=== PATIENT | female | born 1985 | race Hispanic/Latino ===

== ENCOUNTER 2024-06-17 14:49 | Emergency (ER) | payer BC, SELFPAY ==
[2024-06-17] VITALS (9 sets, daily range): BP systolic 138–173; BP diastolic 66–93; PULSE 81–92; RESP 18–20; TEMP 36.8; O2SAT 96–100; BMI 31.8
--- NOTE | 2024-06-17 15:18 | DI.CT.S_ITS ---
PROCEDURE: CT ANGIO HEAD AND NECK INDICATIONS: stroke TECHNIQUE: After the administration of intravenous contrast, 1 mm thick sections acquired from the aortic arch through the [place]. 3-dimensional jwdqrzp-vlozgxgic-jykimgftnf (MIP) and/or volume rendering reformats were acquired of the central intracranial vasculature and neck separately. For radiation dose reduction, the following was used: automated exposure control, adjustment of mA and/or kV according to patient size. COMPARISON: [facility], CT, CT HEAD/BRAIN WO CON, 06/17/2024, 15:37. FINDINGS: Image quality: There is streak artifact seen through the level of the shoulders. This examination is limited by involuntary motion artifact. Limited by bolus timing, with venous contamination. BRAIN: CSF spaces: Ventricles are normal in size and shape. Basal cisterns are patent. No extra-axial fluid collections. Brain: No significant abnormality of the brain can be seen. Skull and face: Scrutiny is given to the course of the left facial nerve, including within the parotid gland. To the limits of CT, no masses or abnormal enhancement can be seen. Calvarium and facial bones appear intact, without suspicious lesions. Orbits appear normal. Sinuses: Sinuses and mastoids are clear. HEAD CT ANGIOGRAPHY: Anterior circulation: Intracranial internal carotid arteries are normal in size and flow. The flow within the paired anterior cerebral arteries is normal and symmetric. The flow within the middle cerebral arteries is normal and symmetric. The anterior communicating artery is seen. No aneurysms are seen. Posterior circulation: Visualized portions of the vertebral arteries demonstrate normal caliber, and join to form a normal appearing basilar artery. Flow within the posterior cerebral arteries is normal and symmetric. No aneurysms are seen. NECK CT ANGIOGRAPHY: Carotid system: The great vessels demonstrate a conventional anatomy as they arise from the aortic arch. The origins of the common carotid arteries appear patent. The common carotid arteries demonstrate normal caliber and courses. The bifurcation regions are both widely patent. The internal carotid arteries demonstrate normal calibers and courses. Posterior circulation: The origins of the vertebral arteries both appear widely patent. The more superior extracranial portions of both vertebral arteries also demonstrate normal courses and calibers. They join to form a normal appearing basilar artery. Soft tissues: Visualized neck soft tissues demonstrate no suspicious abnormalities. Bones: No suspicious bony lesions. Visualized cervical spine appears normally aligned. IMPRESSION: No significant intracranial arterial abnormality is seen. No significant abnormality is seen within the arteries of the neck. If there is strong clinical suspicion for an acute stroke, please consider a brain MRI for further evaluation, as it is more sensitive (assuming that there is no contraindication to MRI). Any quantitative measurements of stenosis were performed using NASCET criteria. Dictated by: Ayo Fish M.D. on 06/17/2024 at 14:52 Approved by: Ayo Fish M.D. on 06/17/2024 at 14:54
--- NOTE | 2024-06-17 15:21 | ED.NEUROSD ---
HPI - Neuro Symptoms/Deficit <Bridget Castaneda MD - Last Filed: 06/18/24 08:27> General Chief Complaint: Neuro Symptoms/Deficit Stated Complaint: bells palsy sent by [facility] Time Seen by Provider: 06/17/24 15:07 Source: patient and family Mode of arrival: Ambulatory History of Present Illness HPI Narrative: 38-year-old woman presents with left-sided acute neurologic symptoms. Symptoms started on June 14 initially with facial weakness on the left side. 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 Seen in clinic today with complaints of decreased sensation along the entire left side, numbness of her tongue, weakness in the left arm and left leg and overall feeling globally weak. No recent viral syndromes, no current fever, cough, chills, chest pain, abdominal pain, palpitations On Anticoagulants: No Related Data Previous Rx's Medication Instructions Recorded albuterol sulfate 90 mcg/actuation 1 puff INH Q4-6 #1 inh 05/23/16 aerosol inhaler (Proventil HFA) prednisone 20 mg tablet 20 mg PO BID #15 tabs 05/23/16 Review of Systems <Bridget Castaneda MD - Last Filed: 06/18/24 08:27> Review of Systems Narrative: Pertinent positive and negative findings as per HPI Hematologic/Lymphatic On Anticoagulants: No Patient History <Bridget Castaneda MD - Last Filed: 06/18/24 08:27> Surgical History (Updated 11/25/17 @ 06:05 by Conversion Provider) Status post tubal ligation (04/12/16) Status post dilation and curettage (03/15/16) Family History (Updated 10/24/16 @ 00:00 by Conversion Provider) Father Hypertension Mother Diabetes mellitus Sister Diabetes mellitus Social History Smoking Status: Never smoker Smoking Status: Never smoker alcohol intake frequency: 0-2 drinks per day Substance Use Type: does not use Exam <Bridget Castaneda MD - Last Filed: 06/18/24 08:27> Initial Vital Signs Initial Vital Signs: Vital Signs Temperature 98.3 F 06/17/24 14:49 Pulse Rate 90 06/17/24 14:49 Respiratory Rate 20 06/17/24 14:49 Blood Pressure 173/93 H 06/17/24 14:49 Pulse Oximetry 98 06/17/24 14:49 Oxygen Delivery Method Room Air 06/17/24 14:49 General: Healthy appearing, in no acute distress. Able to give a complete and coherent history. HEENT: Moist mucous membranes, normal sclera with reactive pupils, Left side facial paralysis upper and lower face, Neck: No JVD, supple Respiratory: Lungs are clear to auscultation, no wheezing no rales no rhonchi. Full and symmetrical air movement Cardiac: Regular rate and rhythm no murmurs no bruits Abdomen: Soft, nontender, good bowel tones, no flank pain Skin: Warm and dry, no rashes Neurologic: weakness left face arm and leg see NIH score below Extremities: No trauma, well perfused Psych: Cooperative, appropriate insight and affect NIH Stroke Scale/Score (NIHSS) on 06/17/2024 RESULT SUMMARY: 8 points NIH Stroke Scale INPUTS: 1A: Level of consciousness ?> 0 = Alert; keenly responsive 1B: Ask month and age ?> 0 = Both questions right 1C: 'Blink eyes' & 'squeeze hands' ?> 0 = Performs both tasks 2: Horizontal extraocular movements ?> 0 = Normal 3: Visual serrato ?> 0 = No visual loss 4: Facial palsy ?> 3 = Unilateral complete paralysis (upper/lower face) 5A: Left arm motor drift ?> 1 = Drift, but doesn't hit bed 5B: Right arm motor drift ?> 0 = No drift for 10 seconds 6A: Left leg motor drift ?> 1 = Drift, but doesn't hit bed 6B: Right leg motor drift ?> 0 = No drift for 5 seconds 7: Limb Ataxia ?> 1 = Ataxia in 1 Limb 8: Sensation ?> 1 = Mild-moderate loss: can sense being touched 9: Language/aphasia ?> 0 = Normal; no aphasia 10: Dysarthria ?> 1 = Mild-moderate dysarthria: slurring but can be understood 11: Extinction/inattention ?> 0 = No abnormality <Dorita Camilo MD - Last Filed: 06/18/24 02:50> Initial Vital Signs Initial Vital Signs: Vital Signs Temperature 98.3 F 06/17/24 14:49 Pulse Rate 90 06/17/24 14:49 Respiratory Rate 20 06/17/24 14:49 Blood Pressure 173/93 H 06/17/24 14:49 Pulse Oximetry 98 06/17/24 14:49 Oxygen Delivery Method Room Air 06/17/24 14:49 Course <Bridget Castaneda MD - Last Filed: 06/18/24 08:27> Orders Ordered: ED Orders 06/17/24 15:18 CT angio head and neck Stat 06/17/24 15:19 Complete Blood Count AUTO DIFF Stat Comprehensive Metabolic Panel Stat PTT Partial Thromboplastin Rolando Stat Prothrombin Time INR Stat 06/17/24 15:21 CT head/brain wo con Stat 06/17/24 15:29 Troponin I Stat 06/17/24 17:44 MR head/brain wo con Stat Vital Signs Vital signs: Vital Signs - 8 hr 06/17/24 19:52 Pulse Rate 87 Respiratory Rate 18 Blood Pressure 144/81 H Pulse Oximetry 96 Oxygen Delivery Method Room Air <Dorita Camilo MD - Last Filed: 06/18/24 02:50> Orders Ordered: ED Orders 06/17/24 15:18 CT angio head and neck Stat 06/17/24 15:19 Complete Blood Count AUTO DIFF Stat Comprehensive Metabolic Panel Stat PTT Partial Thromboplastin Rolando Stat Prothrombin Time INR Stat 06/17/24 15:21 CT head/brain wo con Stat 06/17/24 15:29 Troponin I Stat 06/17/24 17:44 MR head/brain wo con Stat Vital Signs Vital signs: Vital Signs - 8 hr 06/17/24 19:52 Pulse Rate 87 Respiratory Rate 18 Blood Pressure 144/81 H Pulse Oximetry 96 Oxygen Delivery Method Room Air MDM - Neuro Symptoms/Deficit <Bridget Castaneda MD - Last Filed: 06/18/24 08:27> Lab Data 06/17/24 15:19 06/17/24 15:19 Labs: Lab Results 06/17/24 06/17/24 Range/Units 15:19 15:29 WBC 10.9 (4.5-11.0) X10^3/uL RBC 4.41 (4.0-5.2) X10^6/uL Hgb 13.9 (12.0-16.0) g/dL Hct 41.4 (36-46) % MCV 93.7 (80-100) fL MCH 31.5 (26-34) PG MCHC 33.6 (30-36) % RDW 13.1 (11.6-14.8) % Plt Count 317 (150-400) X10^3/uL Neut % (Auto) 86.3 H (50-75) % Lymph % (Auto) 12.0 L (25-40) % [place] % (Auto) 1.4 L (3-14) % Eos % (Auto) 0.0 L (2-4) % Baso % (Auto) 0.3 (0-2) % Neut # (Auto) 9400 H (8362-9246) /uL Lymph # (Auto) 1300 (6062-1727) /uL [place] # (Auto) 200 (0-900) /uL Eos # (Auto) 0 (0-450) /uL Baso # (Auto) 0 (0-100) /uL PT 11.1 (9.4-12.5) SECONDS INR 1.0 (0.9-1.3) APTT 30 (25.1-36.5) SECONDS Sodium 138 (137-145) mmol/L Potassium 3.8 (3.4-5.1) mmol/L Chloride 107 (98-107) mmol/L Carbon Dioxide 21 L (22-32) mmol/L BUN 15 (7-17) mg/dL Creatinine 0.68 (0.52-1.04) mg/dL Estimated GFR > 60 (>60) mL/min BUN/Creatinine Ratio 22.1 H (6-22) Glucose 145 H (70-100) mg/dL Calcium 9.6 (8.4-10.2) mg/dL Total Bilirubin 0.3 (0.2-1.3) mg/dL AST 32 (14-36) IU/L ALT 29 (<35) IU/L Alkaline Phosphatase 80 (38-126) U/L Troponin I < 0.012 (0.01-0.034) ng/mL Total Protein 8.8 H (6.3-8.2) g/dL Albumin 4.9 (3.5-5.0) g/dL Globulin 3.9 (1.7-4.1) g/dL Albumin/Globulin Ratio 1.3 (1.0-2.8) Imaging Data CT scan - head: Radiologist's Impression: PROCEDURE: CT HEAD/BRAIN WO CON INDICATIONS: stroke, onset 06/14 TECHNIQUE: Noncontrast 4.5 mm thick angled axial sections acquired from the foramen magnum to the vertex, with coronal and sagittal reformats. For radiation dose reduction, the following was used: automated exposure control, adjustment of mA and/or kV according to patient size. COMPARISON: [facility], CT, CT ANGIO HEAD AND NECK, 06/17/2024, 15:37. FINDINGS: Image quality: Diagnostic. CSF spaces: Basal cisterns are patent. No extra-axial fluid collections. Ventricles are normal in size and shape. Brain: No midline shift. No intracranial masses or hemorrhage. Cedneo-white matter interface is normal. Skull and face: Calvarium and visualized facial bones are intact, without suspicious lesions. Sinuses: Visualized sinuses and mastoids are clear. IMPRESSION: No acute intracranial hemorrhage is seen. No acute intracranial pathology. Dictated by: Ayo Fish M.D. on 06/17/2024 at 14:54 CT angio of the Head and neck: Radiologist's Impression: PROCEDURE: CT ANGIO HEAD AND NECK INDICATIONS: stroke TECHNIQUE: After the administration of intravenous contrast, 1 mm thick sections acquired from the aortic arch through the [place]. 3-dimensional ztoaqpr-rtohwrrfd-kmqmshlsmp (MIP) and/or volume rendering reformats were acquired of the central intracranial vasculature and neck separately. For radiation dose reduction, the following was used: automated exposure control, adjustment of mA and/or kV according to patient size. COMPARISON: [facility], CT, CT HEAD/BRAIN WO CON, 06/17/2024, 15:37. FINDINGS: Image quality: There is streak artifact seen through the level of the shoulders. This examination is limited by involuntary motion artifact. Limited by bolus timing, with venous contamination. BRAIN: CSF spaces: Ventricles are normal in size and shape. Basal cisterns are patent. No extra-axial fluid collections. Brain: No significant abnormality of the brain can be seen. Skull and face: Scrutiny is given to the course of the left facial nerve, including within the parotid gland. To the limits of CT, no masses or abnormal enhancement can be seen. Calvarium and facial bones appear intact, without suspicious lesions. Orbits appear normal. Sinuses: Sinuses and mastoids are clear. HEAD CT ANGIOGRAPHY: Anterior circulation: Intracranial internal carotid arteries are normal in size and flow. The flow within the paired anterior cerebral arteries is normal and symmetric. The flow within the middle cerebral arteries is normal and symmetric. The anterior communicating artery is seen. No aneurysms are seen. Posterior circulation: Visualized portions of the vertebral arteries demonstrate normal caliber, and join to form a normal appearing basilar artery. Flow within the posterior cerebral arteries is normal and symmetric. No aneurysms are seen. NECK CT ANGIOGRAPHY: Carotid system: The great vessels demonstrate a conventional anatomy as they arise from the aortic arch. The origins of the common carotid arteries appear patent. The common carotid arteries demonstrate normal caliber and courses. The bifurcation regions are both widely patent. The internal carotid arteries demonstrate normal calibers and courses. Posterior circulation: The origins of the vertebral arteries both appear widely patent. The more superior extracranial portions of both vertebral arteries also demonstrate normal courses and calibers. They join to form a normal appearing basilar artery. Soft tissues: Visualized neck soft tissues demonstrate no suspicious abnormalities. Bones: No suspicious bony lesions. Visualized cervical spine appears normally aligned. IMPRESSION: No significant intracranial arterial abnormality is seen. No significant abnormality is seen within the arteries of the neck. If there is strong clinical suspicion for an acute stroke, please consider a brain MRI for further evaluation, as it is more sensitive (assuming that there is no contraindication to MRI). Any quantitative measurements of stenosis were performed using NASCET criteria. Dictated by: Ayo Fish M.D. on 06/17/2024 at 14:52 MDM Narrative Medical decision making narrative: CC: Left side stroke symptoms starting on June 14 Complicating co-morbidities: initially felt to be Hooker's palsy, she is completed a couple of days of prednisone was not given acyclovir Data collected from: patient Differential considered: stroke, intracranial hemorrhage, intracranial mass, MS, Exam documented above, pertinent findings include: Left facial paralysis, numbness, 4-5 strength with mild paresthesia to upper and lower extremities. NIH score is 8 Lab Test results independently reviewed as above. Pertinent findings: CBC is unremarkable coagulation studies are appropriate chemistries are unremarkable Imaging studies independently reviewed: CT of the head does not show any acute findings CT angiogram of the head and neck does not show acute findings or bleeding Consultations: Treatments: Re-evaluations: Discussion: patient definitely has left-sided facial paralysis that does look like Hooker's palsy however there was also associated numbness, tongue involvement left-sided upper extremity and lower extremity weakness with upper and lower extremity paresthesias. The upper and lower extremity abnormalities did not show up until 24 hours after the initial facial /Hooker's palsy presentation on June 14. She is well out of any time window for tPA or other intervention. Initial CT and CT angiogram of the head and neck did not show acute findings. Patient is updated. She is going to . [facility]. <Dorita Camilo MD - Last Filed: 06/18/24 02:50> Lab Data Labs: Lab Results 06/17/24 06/17/24 Range/Units 15:19 15:29 WBC 10.9 (4.5-11.0) X10^3/uL RBC 4.41 (4.0-5.2) X10^6/uL Hgb 13.9 (12.0-16.0) g/dL Hct 41.4 (36-46) % MCV 93.7 (80-100) fL MCH 31.5 (26-34) PG MCHC 33.6 (30-36) % RDW 13.1 (11.6-14.8) % Plt Count 317 (150-400) X10^3/uL Neut % (Auto) 86.3 H (50-75) % Lymph % (Auto) 12.0 L (25-40) % [place] % (Auto) 1.4 L (3-14) % Eos % (Auto) 0.0 L (2-4) % Baso % (Auto) 0.3 (0-2) % Neut # (Auto) 9400 H (6502-8361) /uL Lymph # (Auto) 1300 (8843-1237) /uL [place] # (Auto) 200 (0-900) /uL Eos # (Auto) 0 (0-450) /uL Baso # (Auto) 0 (0-100) /uL PT 11.1 (9.4-12.5) SECONDS INR 1.0 (0.9-1.3) APTT 30 (25.1-36.5) SECONDS Sodium 138 (137-145) mmol/L Potassium 3.8 (3.4-5.1) mmol/L Chloride 107 (98-107) mmol/L Carbon Dioxide 21 L (22-32) mmol/L BUN 15 (7-17) mg/dL Creatinine 0.68 (0.52-1.04) mg/dL Estimated GFR > 60 (>60) mL/min BUN/Creatinine Ratio 22.1 H (6-22) Glucose 145 H (70-100) mg/dL Calcium 9.6 (8.4-10.2) mg/dL Total Bilirubin 0.3 (0.2-1.3) mg/dL AST 32 (14-36) IU/L ALT 29 (<35) IU/L Alkaline Phosphatase 80 (38-126) U/L Troponin I < 0.012 (0.01-0.034) ng/mL Total Protein 8.8 H (6.3-8.2) g/dL Albumin 4.9 (3.5-5.0) g/dL Globulin 3.9 (1.7-4.1) g/dL Albumin/Globulin Ratio 1.3 (1.0-2.8) Imaging Data CT angio of the Head and neck: Radiologist's Impression: PROCEDURE: CT ANGIO HEAD AND NECK INDICATIONS: stroke TECHNIQUE: After the administration of intravenous contrast, 1 mm thick sections acquired from the aortic arch through the [place]. 3-dimensional weivhyl-sqmjaenie-vmxhgithcg (MIP) and/or volume rendering reformats were acquired of the central intracranial vasculature and neck separately. For radiation dose reduction, the following was used: automated exposure control, adjustment of mA and/or kV according to patient size. COMPARISON: [facility], CT, CT HEAD/BRAIN WO CON, 06/17/2024, 15:37. FINDINGS: Image quality: There is streak artifact seen through the level of the shoulders. This examination is limited by involuntary motion artifact. Limited by bolus timing, with venous contamination. BRAIN: CSF spaces: Ventricles are normal in size and shape. Basal cisterns are patent. No extra-axial fluid collections. Brain: No significant abnormality of the brain can be seen. Skull and face: Scrutiny is given to the course of the left facial nerve, including within the parotid gland. To the limits of CT, no masses or abnormal enhancement can be seen. Calvarium and facial bones appear intact, without suspicious lesions. Orbits appear normal. Sinuses: Sinuses and mastoids are clear. HEAD CT ANGIOGRAPHY: Anterior circulation: Intracranial internal carotid arteries are normal in size and flow. The flow within the paired anterior cerebral arteries is normal and symmetric. The flow within the middle cerebral arteries is normal and symmetric. The anterior communicating artery is seen. No aneurysms are seen. Posterior circulation: Visualized portions of the vertebral arteries demonstrate normal caliber, and join to form a normal appearing basilar artery. Flow within the posterior cerebral arteries is normal and symmetric. No aneurysms are seen. NECK CT ANGIOGRAPHY: Carotid system: The great vessels demonstrate a conventional anatomy as they arise from the aortic arch. The origins of the common carotid arteries appear patent. The common carotid arteries demonstrate normal caliber and courses. The bifurcation regions are both widely patent. The internal carotid arteries demonstrate normal calibers and courses. Posterior circulation: The origins of the vertebral arteries both appear widely patent. The more superior extracranial portions of both vertebral arteries also demonstrate normal courses and calibers. They join to form a normal appearing basilar artery. Soft tissues: Visualized neck soft tissues demonstrate no suspicious abnormalities. Bones: No suspicious bony lesions. Visualized cervical spine appears normally aligned. IMPRESSION: No significant intracranial arterial abnormality is seen. No significant abnormality is seen within the arteries of the neck. If there is strong clinical suspicion for an acute stroke, please consider a brain MRI for further evaluation, as it is more sensitive (assuming that there is no contraindication to MRI). Any quantitative measurements of stenosis were performed using NASCET criteria. Dictated by: Ayo Fish M.D. on 06/17/2024 at 14:52 PROCEDURE: MR HEAD/BRAIN WO CON INDICATIONS: stroke TECHNIQUE: Noncontrast axial T1 spin echo, axial T2 fast spin echo, sagittal and axial FLAIR, coronal T2 fast spin echo, axial gradient echo, axial diffusion and ADC through the brain. COMPARISON: [facility], CT, CT HEAD/BRAIN WO CON, 06/17/2024, 15:37. [facility], CT, CT ANGIO HEAD AND NECK, 06/17/2024, 15:37. FINDINGS: Image quality: Excellent. CSF Spaces: Basal cisterns are patent. No extra-axial fluid collections. Ventricles are normal in size and shape. Brain: No intracranial masses or hemorrhage. [place]/white matter interface is normal. Brainstem appears normal. Diffusion-weighted images demonstrate no acute infarct. No chronic ischemic insults. Normal intravascular flow voids are present. Skull and face: Calvarium has normal marrow signal. Orbits appear normal. Sinuses: Sinuses and mastoids are clear. IMPRESSION: No acute infarct. Dictated by: Carlos Elaine M.D. on 06/17/2024 at 19:10 Approved by: Carlos Elaine M.D. on 06/17/2024 at 19:15 [facility] Narrative Medical decision making narrative: CC: Left side stroke symptoms starting on June 14 Complicating co-morbidities: initially felt to be Hooker's palsy, she is completed a couple of days of prednisone was not given acyclovir Data collected from: patient Differential considered: stroke, intracranial hemorrhage, intracranial mass, MS, Exam documented above, pertinent findings include: Left facial paralysis, numbness, 4-5 strength with mild paresthesia to upper and lower extremities. NIH score is 8 Lab Test results independently reviewed as above. Pertinent findings: CBC is unremarkable coagulation studies are appropriate chemistries are unremarkable Imaging studies independently reviewed: CT of the head does not show any acute findings CT angiogram of the head and neck does not show acute findings or bleeding Consultations: Treatments: Re-evaluations: Discussion: patient definitely has left-sided facial paralysis that does look like Hooker's palsy however there was also associated numbness, tongue involvement left-sided upper extremity and lower extremity weakness with upper and lower extremity paresthesias. The upper and lower extremity abnormalities did not show up until 24 hours after the initial facial /Hooker's palsy presentation on June 14. She is well out of any time window for tPA or other intervention. Initial CT and CT angiogram of the head and neck did not show acute findings. Patient is updated. She is going to . Will transfer care to oncoming evening physician. Dr. Camilo - care of patient is signed out to me by daytime physician. Independent review of patient and chart performed by myself. MRI brain shows no acute abnormalities. No signs of infarct, abnormal signal uptake, other concerns. CT brain and CT angio head and neck show no acute findings either. Patient reassessed, she still has sequela of Hooker's palsy. Patient informed of all lab and imaging findings as well as MRI results. She was counseled to continue to take the prednisone as previously prescribed. Hooker's palsy it was generally a self-limiting condition and should resolve in the next several weeks. ED return precautions discussed at bedside. Patient expressed understanding of the plan and is in agreement at this time. All questions answered at the time of discharge. Discharge Plan Departure Patient Disposition: Home Clinical Impression: Hooker's palsy Instructions: DI for [place] Palsy Activity Restrictions/Additional Instructions: your laboratory work and CT imaging as well as brain MRI did not show any strokes, tumors, bleeds, or any other abnormalities. Your blood work looks good and I did not see any sign of infection. Continue to take the prednisone given to you. You may take Tylenol and ibuprofen as needed for headache. Hooker's palsy in the majority of cases goes back to normal after several weeks. Follow up with your primary care doctor. Prescriptions: No Action albuterol sulfate [Proventil HFA] 90 MCG/PUFF HFA aerosol inhaler 1 puff INH Q4-6 Qty: 1 1RF prednisone 20 MG tablet 20 mg PO BID Qty: 15 0RF Referrals: Franko Spencer MD [Primary Care Provider] - Stand Alone Forms: Patient Portal/API/Survey
[2024-06-17 15:32] LABS: Add Manual Diff / Slide Review NO; Basophils Absolute Auto 0 /uL (0-100); Basophils Percent Auto 0.3 % (0-2); Eosinophils Absolute Auto 0 /uL (0-450); Hematocrit 41.4 % (36-46); Hemoglobin 13.9 g/dL (12.0-16.0); Lymphocytes Absolute Auto 1300 /uL (1100-4500); Mean Corpuscular HGB Conc 33.6 % (30-36); Mean Corpuscular Hemoglobin 31.5 PG (26-34); Mean Corpuscular Volume 93.7 fL (80-100); Monocytes Absolute Auto 200 /uL (0-900); Monocytes Percent Auto 1.4 % (3-14); Neutrophils Absolute Auto 9400 /uL (1500-7000); Neutrophils Percent Auto 86.3 % (50-75); Platelet Count 317 X10^3/uL (150-400); Red Blood Cell Count 4.41 X10^6/uL (4.0-5.2); Red Cell Distribution Width 13.1 % (11.6-14.8); White Blood Cell Count 10.9 X10^3/uL (4.5-11.0)
[2024-06-17 15:38] LABS: Prothrombin Time 11.1 SECONDS (9.4-12.5)
[2024-06-17 15:45] LABS: Alanine Aminotransferase 29 IU/L (<35); Albumin 4.9 g/dL (3.5-5.0); Albumin Globulin Ratio 1.3 (1.0-2.8); Alkaline Phosphatase 80 U/L (38-126); Aspartate Aminotransferase 32 IU/L (14-36); BUN Creatinine Ratio 22.1 (6-22); Bilirubin Total 0.3 mg/dL (0.2-1.3); Blood Urea Nitrogen 15 mg/dL (7-17); Calcium 9.6 mg/dL (8.4-10.2); Carbon Dioxide 21 mmol/L (22-32); Chloride 107 mmol/L (98-107); Estimated Glomerular Filt Rate > 60 mL/min (>60); Globulin 3.9 g/dL (1.7-4.1); Glucose 145 mg/dL (70-100); HEMOLYSIS < 15 (0-50); Potassium 3.8 mmol/L (3.4-5.1); Sodium 138 mmol/L (137-145); Total Protein 8.8 g/dL (6.3-8.2)
[2024-06-17 16:01] LABS: PTT Partial Thromboplastin Tim 30 SECONDS (25.1-36.5)
[2024-06-17 16:07] LABS: Troponin I < 0.012 ng/mL (0.01-0.034)
--- NOTE | 2024-06-17 17:44 | DI.MRI.S_ITS ---
PROCEDURE: MR HEAD/BRAIN WO CON INDICATIONS: stroke TECHNIQUE: Noncontrast axial T1 spin echo, axial T2 fast spin echo, sagittal and axial FLAIR, coronal T2 fast spin echo, axial gradient echo, axial diffusion and ADC through the brain. COMPARISON: [facility], CT, CT HEAD/BRAIN WO CON, 06/17/2024, 15:37. [facility], CT, CT ANGIO HEAD AND NECK, 06/17/2024, 15:37. FINDINGS: Image quality: Excellent. CSF Spaces: Basal cisterns are patent. No extra-axial fluid collections. Ventricles are normal in size and shape. Brain: No intracranial masses or hemorrhage. [place]/white matter interface is normal. Brainstem appears normal. Diffusion-weighted images demonstrate no acute infarct. No chronic ischemic insults. Normal intravascular flow voids are present. Skull and face: Calvarium has normal marrow signal. Orbits appear normal. Sinuses: Sinuses and mastoids are clear. IMPRESSION: No acute infarct. Dictated by: Carlos Elaine M.D. on 06/17/2024 at 19:10 Approved by: Carlos Elaine M.D. on 06/17/2024 at 19:15
== END 2024-06-17 19:55 | disposition home or self-care (01) ==
PROVIDERS: Emergency Provider Emergency Medicine; Family Provider Family Medicine; PCP Family Medicine
DX: G51.0 Bell's palsy (principal); Z86.73 Personal history of transient ischemic attack (TIA), and cerebral infarction without residual deficits
CPT/HCPCS: 36415; 70450; 70496; 70498; 70551; 80053; 84484; 85025; 85610; 85730; 99284; Q9967